=== PATIENT | male | born 1980 | race Caucasian/White ===

== ENCOUNTER 2023-08-21 16:21 | Outpatient (CLI) | payer OTHER, SELFPAY | END 2023-08-21 16:22 | disposition home or self-care (01) | PROVIDERS: PCP Emergency Medicine; Visit Provider Emergency Medicine | DX: F41.8 Other specified anxiety disorders (principal) | CPT/HCPCS: 84443 ==

== ENCOUNTER 2023-09-20 08:58 | Outpatient (CLI) | payer OTHER, SELFPAY | END 2023-09-20 08:59 | disposition home or self-care (01) | LOC: NFLDREF 09-25 10:29 | PROVIDERS: PCP Emergency Medicine; Referring Provider Emergency Medicine; Visit Provider Emergency Medicine | DX: Z13.1 Encounter for screening for diabetes mellitus (principal); Z13.220 Encounter for screening for lipoid disorders | CPT/HCPCS: 80053; 80061 ==

== ENCOUNTER 2023-12-31 08:01 | Outpatient (CLI) | payer OTHER, SELFPAY | END 2023-12-31 08:02 | disposition home or self-care (01) | LOC: NFLDREF 01-09 12:31 | PROVIDERS: PCP Emergency Medicine; Referring Provider Emergency Medicine; Visit Provider Emergency Medicine | DX: E78.5 Hyperlipidemia, unspecified (principal) | CPT/HCPCS: 80061 ==

== ENCOUNTER 2024-04-15 19:45 | Outpatient (CLI) | payer OTHER, SELFPAY ==
--- NOTE | 2024-05-12 08:10 | W.PM.SLEEP ---
Sleep Study Details Details Interpreting Provider: John Date of Sleep Study: 04/15/24 Sleep Study Details: STUDY TYPE:? Home unattended ? BMI:? 40.8 ORDERING PROVIDER:Queenie De Santiago INDICATION:? Concern about sleep apnea ? SLEEP SUMMARY:? 601 minutes monitored RESPIRATORY SUMMARY:? AHI 57.8, supine 74.8, left lateral 25.1, right lateral 27.1 Low oxygen 82 9.6% of study oxygen less than 90% Snoring 79.8% PERIODIC LIMB MOVEMENTS OF SLEEP:? Not recorded CARDIAC:? Range 52-89, mean 63.8 beats per minute IMPRESSION:? Severe obstructive sleep apnea RECOMMENDATION: Treatment options include weight loss and CPAP.
== END 2024-04-15 19:46 | disposition home or self-care (01) ==
LOC: SLEEP 19:49
PROVIDERS: PCP Emergency Medicine; Visit Provider Emergency Medicine
DX: G47.33 Obstructive sleep apnea (adult) (pediatric) (principal)
CPT/HCPCS: 95806

== ENCOUNTER 2024-06-09 09:04 | Outpatient (CLI) | payer OTHER, SELFPAY | END 2024-06-09 09:05 | disposition home or self-care (01) | LOC: NFLDREF 06-13 06:59 | PROVIDERS: PCP Emergency Medicine; Referring Provider Emergency Medicine; Visit Provider Emergency Medicine | DX: E78.2 Mixed hyperlipidemia (principal) | CPT/HCPCS: 80061 ==

== ENCOUNTER 2024-06-11 14:19 | Outpatient (CLI) | payer OTHER, SELFPAY | END 2024-06-11 14:20 | disposition home or self-care (01) | PROVIDERS: PCP Emergency Medicine; Visit Provider Emergency Medicine | DX: Z13.228 Encounter for screening for other metabolic disorders (principal); Z13.29 Encounter for screening for other suspected endocrine disorder | CPT/HCPCS: 80053; 84443 ==

== ENCOUNTER 2024-07-12 17:07 | Emergency (ER) | payer OTHER, SELFPAY ==
[2024-07-12] VITALS (8 sets, daily range): BP systolic 118–127; BP diastolic 72–79; PULSE 89–100; RESP 18–20; TEMP 36.2–37.3; O2SAT 93–97; BMI 39.1
--- NOTE | 2024-07-12 17:14 | ED_ITS ---
HPI - General Adult General Date Seen: 07/12/24 Chief complaint: Fever Stated complaint: 102 fever, bloody stools, pain Time Seen by Provider: 07/12/24 17:14 History of Present Illness HPI narrative: 44-year-old male with a past medical history of elevated BMI, depression (on fluoxetine), anxiety, osteoarthritis, sleep apnea, dyslipidemia (on rosuvastatin), presenting to the ER today for bloody stools associated with fever and chills and body aches. He is generally healthy. No diabetes or immunosuppression. He 1st noted symptoms Rickey evening. He went to the bathroom and had a fairly liquidy and 5 watery stool associated with bright red blood in the toilet water. Since then he has not really had a lot of episodes of diarrhea. He has only had 1 other stool and was small black no gets up black feces. Since then he has also developed fever and chills with body aches, sweatiness, fatigue and myalgias. He has also had fairly significant abdominal pain predominantly in his right lower quadrant. The pain is worse with any movement. He is not really nauseous but has had a poor appetite. He has been trying to drink plenty of water because he is running a fever. Despite that he has noted that his urine has become more yellow and foul smelling. He is not having any dysuria. He also has a mild stuffy nose, cough. He has had a bad headache. He has no known exposure to anyone with recent illnesses. No recent travel or suspicious food intake. No recent antibiotic. He is allergic to amoxicillin and penicillins. Related Data Previous Rx's ?Medication ?Instructions ?Recorded fluoxetine 20 mg capsule 40 mg (2 x 20 mg) PO QDAY #180 caps 03/17/24 rosuvastatin 20 mg tablet 20 mg PO QDAY #90 tabs 06/11/24 benzonatate 100 mg capsule 100 mg PO TID PRN cough #14 caps 07/12/24 doxycycline hyclate 100 mg capsule 100 mg PO BID #14 caps 07/12/24 Allergies Allergy/AdvReac Type Severity Reaction Status Date / Time clavulanic acid (From Allergy Intermediate Rash Verified 06/11/24 13:45 Augmentin) hydrocodone Allergy Intermediate Nausea Verified 06/11/24 13:45 amoxicillin Allergy Unknown Rash Verified 06/11/24 13:45 Penicillins Allergy Unknown Hives Verified 06/11/24 13:45 bupropion AdvReac Severe Verified 06/11/24 13:45 [facility] Medical History (Updated 07/12/24 @ 19:45 by Giancarlo Birmingham MD) Weight loss counseling, encounter for ?Z71.3 - Dietary counseling and surveillance (ICD-10) GAIL (obstructive sleep apnea) ?G47.33 - Obstructive sleep apnea (adult) (pediatric) (ICD-10) Screening for hyperlipidemia ?Z13.220 - Encounter for screening for lipoid disorders (ICD-10) Screening for diabetes mellitus ?Z13.1 - Encounter for screening for diabetes mellitus (ICD-10) BMI 38.0-38.9,adult ?Z68.38 - Body mass index [BMI] 38.0-38.9, adult (ICD-10) Cough ?R05.9 - Cough, unspecified (ICD-10) Snoring ?R06.83 - Snoring (ICD-10) Fatigue ?R53.83 - Other fatigue (ICD-10) Depression with anxiety ?F41.8 - Other specified anxiety disorders (ICD-10) Tenosynovitis of finger ?M65.9 - Synovitis and tenosynovitis, unspecified (ICD-10) Bilateral carpal tunnel syndrome (07/25/15) ?G56.03 - Carpal tunnel syndrome, bilateral upper limbs (ICD-10) Family History (Updated 04/10/23 @ 10:07 by Catherine Valera ~ PSR) Father Diabetes Mother Anxiety Depression ADHD (attention deficit hyperactivity disorder) Paternal Grandmother Lung cancer Maternal Grandmother Leukemia Social History (Updated 08/21/23 @ 16:10 by Cady Ames MD) Narrative: Cigar smoker Alcohol ingestion, 1-4 drinks/week Does not use illicit drugs [employer] Smoking Status: Former smoker Do you use any of these nicotine containing products: None Second hand tobacco smoke exposure: No Non-prescribed substance use: denies use Little interest or pleasure in doing things: several days Feeling down, depressed, or hopeless: several days Exam Narrative: Exam Narrative: Constitutional: Appears well-developed and well-nourished. Alert. Conversant but uncomfortable appearing. Non toxic. HENT: Head: Atraumatic. Nose: Nose normal. Mouth/Throat: Oral mucosa is clear but dry. Not desiccated or cracked. No trismus. Eyes: Conjunctivae normal. EOM normal. Pupils equal, round, and reactive to light. No scleral icterus. Neck: Normal range of motion. Neck supple. No tracheal deviation present. No JVD Cardiovascular: Normal rate, regular rhythm. No gallop. No friction rub. No murmur heard. Symmetric radial artery pulses Pulmonary/Chest: Effort normal. No stridor. No respiratory distress. No wheezes. No rales. No rhonchi . No tenderness. Abdominal: Soft. Bowel sounds normal. No distension. No mass. Marked right lower quadrant tenderness. Right lower quadrant pain is triggered by palpation in the epigastrium and left side. Positive rebound. Negative guarding. No CVA tenderness. No right upper quadrant tenderness. Positive psoas sign Musculoskeletal: RUE: Normal range of motion. No tenderness. No deformity LUE: Normal range of motion. No tenderness. No deformity RLE: Normal range of motion. No edema. No tenderness. No deformity LLE: Normal range of motion. No edema. No tenderness. No deformity Neurological: Alert and oriented to person, place, and time. Normal strength. CN II-VII intact. No sensory deficit. GCS eye subscore is 4. GCS verbal subscore is 5. GCS motor subscore is 6. Normal coordination Skin: Skin is warm and dry. No rash noted. No pallor. Normal capillary refill. Psychiatric: Normal mood. Normal affect. Const: Vital Signs, click to edit/add: Vital Signs - 24 hr 07/12/24 17:09 07/12/24 18:00 07/12/24 18:02 Temperature 99.1 F Pulse Rate [Pulse Oximeter] 100 97 Respiratory Rate 20 20 Blood Pressure [Ri ght Upper Arm] 123/79 121/73 Pulse Oximetry 94 97 95 Oxygen Delivery Me thod Room Air Room Air Room Air 07/12/24 18:03 07/12/24 18:30 07/12/24 18:32 Temperature Pulse Rate [Pulse Oximeter] 90 Respiratory Rate 18 Blood Pressure [Ri t Upper Arm] 127/72 Pulse Oximetry 95 93 93 Oxygen Delivery Me thod Room Air Room Air Room Air 07/12/24 19:00 07/12/24 19:48 Temperature 97.2 F L Pulse Rate [Pulse Oximeter] 89 Respiratory Rate 18 Blood Pressure [Ri t Upper Arm] 118/76 Pulse Oximetry 97 Oxygen Delivery Me thod Room Air Course Course ED Course: Recheck-repeat abdominal exam still reveals some right lower quadrant tenderness but no ongoing Rovsing sign. Psoas sign is absent. Reevaluation(s) Reevaluation #1: Recheck-CT scan shows negative for appendicitis or other acute intra-abdominal pathology. It does show evidence for a right lower lobe pneumonia. Discussed results with the patient in detail. Reevaluation #2: Recheck-tolerating p.o.. Took doxycycline to treat pneumonia. Chest x-ray confirms a right lower lobe infiltrate but no other chest abnormality. Discussed results with the patient as well as his and [id number] in detail. Vital Signs Vital signs: Initial Vital Signs Temperature 99.1 F 07/12/24 17:09 Temperature Source Temporal Artery Scan 07/12/24 17:09 Pulse Rate 100 07/12/24 17:09 Respiratory Rate 20 07/12/24 17:09 Blood Pressure 123/79 07/12/24 17:09 Blood Pressure Mean 93 07/12/24 17:09 Pulse Oximetry 94 07/12/24 17:09 Oxygen Delivery Method Room Air 07/12/24 17:09 Vital Signs Temperature 99.1 F 07/12/24 17:09 Pulse Rate 100 07/12/24 17:09 Respiratory Rate 20 07/12/24 17:09 Blood Pressure 123/79 07/12/24 17:09 Pulse Oximetry 94 07/12/24 17:09 Oxygen Delivery Method Room Air 07/12/24 17:09 Temperature 97.2 F L 07/12/24 19:00 Pulse Rate 89 07/12/24 19:48 Respiratory Rate 18 07/12/24 19:48 Blood Pressure 118/76 07/12/24 19:48 Pulse Oximetry 97 07/12/24 19:48 Oxygen Delivery Method Room Air 07/12/24 19:48 Medications Administered Medications: Discontinued Medications Generic Name Dose Route Start Last Admin Trade Name Freq PRN Reason Stop Dose Admin Acetaminophen 1,000 mg 07/12/24 17:28 07/12/24 17:59 Acetaminophen 500 Mg Tablet PO 07/12/24 17:29 1,000 mg ONCE ONE Administration Doxycycline Hyclate 100 mg 07/12/24 19:40 07/12/24 19:47 Doxycycline Hyclate 100 Mg PO 07/12/24 19:41 100 mg ONCE ONE Administration Hydromorphone HCl 0.5 mg 07/12/24 17:28 07/12/24 18:00 Hydromorphone 0.5 Mg/0.5 Ml Inj IVP 0.5 mg Q1H PRN Administration Pain Sodium Chloride 500 mls @ 500 mls/hr 07/12/24 17:28 07/12/24 18:00 0.9 % Sodium Chloride 500 Ml IV 07/12/24 18:27 500 mls/hr .Q1H ONE Administration Ondansetron HCl 4 mg 07/12/24 17:28 07/12/24 17:59 Ondansetron 2 Mg/Ml Inj IVP 07/12/24 17:29 4 mg ONCE ONE Administration Medical Decision Making MDM Narrative Medical decision making narrative: Child presents for evaluation of fever associated with multiple other symptoms including cough, headache, body aches, chills, sweats, abdominal pain, and 1 bloody stool that happened 2 nights ago. Differential is broad. Primary concern is for abdominal source of fever with his more right lower quadrant tenderness. CT scan is fortunately negative for appendicitis. Also no evidence for colitis, diverticulitis, perforation, abscess. He did have a bloody stool 2 nights ago which raises concern for possible infectious enteritis. However he has not had any ongoing diarrhea since then so would not order stool culture at this time. Urinalysis is obtained to look for possible UTI or pyelonephritis. It is negative for infection but does show trace hematuria. Discussed in detail with the patient and he will follow-up with his primary care provider for re- evaluation. He does have a cough and headache. COVID influenza swab is negative. Abdominal CT does show evidence for right lower lobe pneumonia. This is confirmed by chest x-ray. Will treat with doxycycline. At this point he is hemodynamically stable, oxygenating well, has no shortness of breath. He has no significant medical comorbidity or immunosuppression requiring hospitalization. Will put him on doxycycline 100 mg b.i.d. for 7 days. No classic rash to suggest viral syndrome. No evidence for OM on exam. No pharyngitis. Differential for fever included cellulitis, septic arthritis, osteomyelitis but these are not seen on exam. The patient is smiling, alert, sitting up, and non-toxic, so I do not think sepsis or meningitis is present. Plan of care includes supportive care with antipyretics, fluids at home. Instructions to return for recheck in 2-3 days if not improved, or immediately if worsening cough, shortness of breath, weakness, fever, decreasing oral intake, lethargy, irritability, or any other concerns. Lab Data Labs: Lab Results 07/12/24 07/12/24 Range/Units 17:30 17:45 WBC 11.76 H (4.50-11.00) K/uL RBC 5.23 (4.30-5.90) m/uL Hgb 15.4 (13.5-17.5) gm/dL Hct 46.3 (37.0-53.0) % MCV 89 (80-100) fL MCH 29 (26-34) pg MCHC 33 (32-36) gm/dL RDW Coeff of [place] 13.1 (11.5-15.5) % Plt Count 261 (140-440) K/uL Neut % (Auto) 81.4 H (42.0-72.0) % Lymph % (Auto) 8.4 L (20-44) % [place] % (Auto) 9.4 (0.0-11.0) % Eos % (Auto) 0.4 (0.0-7.0) % Baso % (Auto) 0.1 (0.0-3.0) % Neut # (Auto) 9.60 H (1.7-7.0) K/uL Lymph # (Auto) 1.00 (0.90-2.90) K/uL [place] # (Auto) 1.10 H (0.00-0.90) K/UL Eos # (Auto) 0.00 (0.00-0.50) K/uL Baso # (Auto) 0.00 (0.00-0.30) K/uL Abs Immat Gran (auto) 0.00 (0.00-0.30) K/uL Imm/Tot Granulo (auto) 0.3 % Sodium 133 L (135-149) mmol/L Potassium 3.7 (3.6-5.1) mmol/L Chloride 100 (96-114) mmol/L Carbon Dioxide 23 (20-32) mmol/L Anion Gap 10 (7-15) mEq/L BUN 13 (5-24) mg/dL Creatinine 1.0 (0.5-1.5) mg/dL Estimated Creat Clear 101.45 Estimated GFR 96 ml/min Glucose 114 (60-115) mg/dL Lactate 1.0 (0.5-1.9) mmol/L Calcium 9.2 (8.4-10.6) mg/dL Total Bilirubin 0.7 (0.1-1.5) mg/dL AST 24 (12-35) U/L ALT 27 (4-50) U/L Alkaline Phosphatase 97 (40-150) U/L Total Protein 7.7 (6.0-8.3) g/dL Albumin 4.5 (3.3-5.0) g/dL Lipase 54 (23-300) U/L Urine Color Yellow (Yellow) Urine Appearance Clear (Clear) Urine pH 6.0 (5.0-8.5) Ur Specific [place] 1.025 (1.000-1.030) Urine Protein 1+ A (Negative) Urine Glucose (UA) Negative (Negative) Urine Ketones 1+ A (Negative) Urine Blood 3+ A (Negative) Urine Nitrite Negative (Negative) Urine Bilirubin Negative (Negative) Urine Urobilinogen 0.2 (0.2-1.0) Ur Leukocyte Esterase Negative (Negative) Urine RBC 5-10 A (0-2) Urine WBC 0-2 (0-5) Ur Squamous Epith Cells Few (None-Few) Urine Bacteria None (None) SARS-CoV-2 (PCR) Negative SARS-CoV-2 (Negative) Influenza Type A (PCR) Negative PCR FLU A (Negative) Influenza Type B (PCR) Negative PCR FLU B (Negative) Imaging Data CT scan - abdomen: Attestation: I have reviewed the pertinent imaging results. Radiologist's impression: FINDINGS: Lower chest: Right lower lobe patchy consolidation. Liver: Unremarkable. Normal in size and attenuation. No suspicious masses. Gallbladder and bile ducts: Unremarkable. No stones or inflammation. No biliary dilatation. Pancreas: Unremarkable. No mass or inflammation. Spleen: Unremarkable. Normal in size. No masses. Adrenal glands: Unremarkable. No nodules. Kidneys: Unremarkable. No suspicious masses, stones, or hydronephrosis. GI tract: Unremarkable. Normal in caliber. No sign of mass or inflammation. Normal appendix. Vasculature: Abdominal aorta is normal in caliber. Mesenteric arteries are patent. Lymph nodes: No lymphadenopathy. Peritoneum/Abdominal Wall: Unremarkable. No sign of mass or infiltration. No free air or significant free fluid. Pelvis: Streak artifact in the pelvis from bilateral total hip arthroplasties mildly limits evaluation.. Bones: Bilateral total hip arthroplasty changes. No acute fractures or dislocations identified. IMPRESSION: 1. right lower lobe patchy consolidation. 2. No acute intra-abdominal process identified. Chest x-ray: Attestation: I have reviewed the pertinent imaging results. My impression: RLL infiltrate Radiologist's impression: IMPRESSION: 1. Focal airspace infiltrates are present in the medial right lung base, likely due to pneumonia. Discharge Plan Discharge Clinical Impression: Pneumonia, Hematuria Instructions: Community Acquired Pneumonia (DC) Additional Instructions: As we discussed, I suspect that a right lower lobe pneumonia is causing your fever, headache, body aches, cough. At this point your labs and vital signs and oxygen level are reassuring. It is safe to treat this pneumonia with antibiotics at home. However if you have worsening symptoms, especially worsening trouble breathing, weakness, or dehydration, please come back to the emergency room right away. Typically it will take 24-72 hours for pneumonia to start to get better after you start on antibiotics. Your workup tonight does show a tiny amount of blood in your urine (only visible under the microscope). Please follow-up with your regular doctor within the next 2-3 weeks for recheck and to consider a urology evaluation. Prescriptions: New doxycycline hyclate 100 mg capsule 100 mg PO BID Qty: 14 0RF benzonatate 100 mg capsule 100 mg PO TID PRN (Reason: cough) Qty: 14 0RF No Action fluoxetine 20 mg capsule 40 mg PO QDAY Qty: 180 3RF rosuvastatin 20 mg tablet 20 mg PO QDAY Qty: 90 3RF Follow Up/Referrals: Cady Ames MD [Primary Care Provider] - Stand Alone Forms: [employer] Info Instructions
--- NOTE | 2024-07-12 17:29 | CRLHL7_ITS ---
For Patients: As a result of the Century Cures Act, medical imaging exams and procedure reports are released immediately into your electronic medical record. You may view this report before your referring provider. If you have questions, please contact your health care provider. INDICATION: RLQ PAIN, REBOUND, FEVER, ONE BLOODY STOOL. TECHNIQUE: CT abdomen and pelvis acquired with 137 cc Isovue 370 IV contrast. COMPARISON: None. FINDINGS: Lower chest: Right lower lobe patchy consolidation. Liver: Unremarkable. Normal in size and attenuation. No suspicious masses. Gallbladder and bile ducts: Unremarkable. No stones or inflammation. No biliary dilatation. Pancreas: Unremarkable. No mass or inflammation. Spleen: Unremarkable. Normal in size. No masses. Adrenal glands: Unremarkable. No nodules. Kidneys: Unremarkable. No suspicious masses, stones, or hydronephrosis. GI tract: Unremarkable. Normal in caliber. No sign of mass or inflammation. Normal appendix. Vasculature: Abdominal aorta is normal in caliber. Mesenteric arteries are patent. Lymph nodes: No lymphadenopathy. Peritoneum/Abdominal Wall: Unremarkable. No sign of mass or infiltration. No free air or significant free fluid. Pelvis: Streak artifact in the pelvis from bilateral total hip arthroplasties mildly limits evaluation.. Bones: Bilateral total hip arthroplasty changes. No acute fractures or dislocations identified. IMPRESSION: 1. right lower lobe patchy consolidation. 2. No acute intra-abdominal process identified. Please note that all CT scans at this facility use dose modulation, iterative reconstruction, and/or weight-based dosing when appropriate to reduce radiation dose to as low as reasonably achievable. Dictated by Hipolito Hercules MD @ 07/12/2024 7:05:54 PM (Electronically Signed)
[2024-07-12 17:42] LABS: Appearance Urine Clear (Clear); Bilirubin Urine Negative (Negative); Blood Urine 3+ (Negative); Color Urine Yellow (Yellow); Glucose Urine Negative (Negative); Ketones Urine 1+ (Negative); Leukocyte Esterase Urine Negative (Negative); Nitrite Urine Negative (Negative); Protein Urine 1+ (Negative); Specific Gravity Urine 1.025 (1.000-1.030); Urobilinogen Urine 0.2 (0.2-1.0)
[2024-07-12 17:50] LABS: Squamous Epithelial Cell Urine Few (None-Few); WBC Urine 0-2 (0-5)
[2024-07-12 17:55] LABS: Basophils Percent Auto 0.1 % (0.0-3.0); Eosinophils Percent Auto 0.4 % (0.0-7.0); Hematocrit 46.3 % (37.0-53.0); Hemoglobin* 15.4 gm/dL (13.5-17.5); Immature Granulocytes Pct Auto 0.3 %; Lymphocytes Percent Auto 8.4 % (20-44); Mean Corpuscular HGB Conc 33 gm/dL (32-36); Mean Corpuscular Hemoglobin 29 pg (26-34); Mean Corpuscular Volume 89 fL (80-100); Monocytes Percent Auto 9.4 % (0.0-11.0); Neutrophils Percent Auto 81.4 % (42.0-72.0); Platelet Count* 261 K/uL (140-440); RDW Coefficient of Variation % 13.1 % (11.5-15.5); Red Blood Count 5.23 m/uL (4.30-5.90); White Blood Count* 11.76 K/uL (4.50-11.00)
[2024-07-12 17:59] LABS: Slide Review Reflex No
[2024-07-12] MEDS: ONDANSETRON 2 MG/ML inj 4 MG IVP (17:59)
[2024-07-12] MEDS: ACETAMINOPHEN 500 MG TABLET 1000 MG PO (17:59)
[2024-07-12] MEDS: HYDROmorphone 0.5 mg/0.5 ml inj IVP (18:00)
[2024-07-12] MEDS: 0.9 % SODIUM CHLORIDE 500 ML 500 ML IV (18:00)
[2024-07-12 18:12] LABS: Albumin* 4.5 g/dL (3.3-5.0); Chloride* 100 mmol/L (96-114); Potassium* 3.7 mmol/L (3.6-5.1); Sodium* 133 mmol/L (135-149)
[2024-07-12 18:14] LABS: Est. Creatinine Clearance* 101.45; Estimated Glomerular Filt Rate 96 ml/min
[2024-07-12 18:15] LABS: Alanine Aminotransferase* 27 U/L (4-50); Alkaline Phosphatase* 97 U/L (40-150); Anion Gap 10 mEq/L (7-15); Aspartate Amino Transferase* 24 U/L (12-35); Bilirubin Total* 0.7 mg/dL (0.1-1.5); Blood Urea Nitrogen* 13 mg/dL (5-24); Calcium* 9.2 mg/dL (8.4-10.6); Carbon Dioxide* 23 mmol/L (20-32); Glucose* 114 mg/dL (60-115); Lipase* 54 U/L (23-300); Total Protein* 7.7 g/dL (6.0-8.3)
[2024-07-12 18:32] LABS: PCR FLU A Negative PCR FLU A (Negative); PCR FLU B Negative PCR FLU B (Negative); SARS PCR* Negative SARS-CoV-2 (Negative)
--- NOTE | 2024-07-12 19:11 | CRLHL7_ITS ---
For Patients: As a result of the Cures Act, medical imaging exams and procedure reports are released immediately into your electronic medical record. You may view this report before your referring provider. If you have questions, please contact your health care provider. INDICATION: Cough, fever TECHNIQUE: Chest radiograph 2 views COMPARISON: None FINDINGS: The sensitivity and specificity of the exam are moderately limited by the patient`s body habitus. Mediastinum: The mediastinum is normal in appearance. The heart silhouette is normal in size and morphology. Lung: Focal airspace infiltrates are present in the medial right lung base, likely due to pneumonia. No sign of pleural effusion seen. No pneumothorax is identified. Bone and Soft tissue: Unremarkable for age. IMPRESSION: 1. Focal airspace infiltrates are present in the medial right lung base, likely due to pneumonia. Dictated by Leander Oliver MD @ 07/12/2024 7:31:40 PM Dictated by: Leander Oliver MD @ 07/12/2024 19:31:44 (Electronically Signed)
[2024-07-12] MEDS: DOXYCYCLINE HYCLATE 100 MG PO (19:47)
== END 2024-07-12 19:57 | disposition home or self-care (01) ==
PROVIDERS: Emergency Provider Emergency Medicine; PCP Emergency Medicine
DX: J18.9 Pneumonia, unspecified organism (principal); R31.9 Hematuria, unspecified
CPT/HCPCS: 36415; 71046; 74177; 80053; 81001; 83605; 83690; 85025; 87631; 96374; 96375; 99284; 99285; A9270; J1171; J2405; J7030; Q9967

== ENCOUNTER 2024-08-27 09:43 | Outpatient (CLI) | payer OTHER, SELFPAY | END 2024-08-27 09:44 | disposition home or self-care (01) | LOC: NFLDREF 15:03 | PROVIDERS: PCP Emergency Medicine; Referring Provider Emergency Medicine; Visit Provider Emergency Medicine | DX: R31.29 Other microscopic hematuria (principal) | CPT/HCPCS: 87086 ==

== ENCOUNTER 2024-09-17 09:38 | Outpatient (CLI) | payer OTHER, SELFPAY ==
--- NOTE | 2024-09-17 10:55 | W.ANESCHARGE ---
Anesthesia Charges Start Date/Time Anesthesia Start Date: 09/17/24 Anesthesia Start Time: 10:24 Stop Date/Time Anesthesia Stop Date: 09/17/24 Anesthesia Stop Time: 10:52
== END 2024-09-17 09:39 | disposition home or self-care (01) ==
LOC: OP CLINIC 09:38
PROVIDERS: PCP Emergency Medicine; Visit Provider Surgery
DX: Z12.11 Encounter for screening for malignant neoplasm of colon (principal); K62.5 Hemorrhage of anus and rectum; D12.8 Benign neoplasm of rectum; Z83.719 Family history of colon polyps, unspecified
CPT/HCPCS: 00811; 45385; 88305; J2704

== ENCOUNTER 2024-10-01 08:38 | Outpatient (CLI) | payer OTHER, SELFPAY | END 2024-10-01 08:39 | disposition home or self-care (01) | LOC: NFLDREF 10-14 04:13 | PROVIDERS: PCP Emergency Medicine; Visit Provider Emergency Medicine | DX: R31.29 Other microscopic hematuria (principal) | CPT/HCPCS: 87086 ==

== ENCOUNTER 2025-01-14 07:58 | Outpatient (CLI) | payer OTHER, SELFPAY ==
--- NOTE | 2025-01-14 08:15 | CRLHL7_ITS ---
For Patients: As a result of the Century Cures Act, medical imaging exams and procedure reports are released immediately into your electronic medical record. You may view this report before your referring provider. If you have questions, please contact your health care provider. Indication: Lumbar pain. Radiculopathy. Technique: Multiplanar, multisequence MRI of the lumbar spine was performed without intravenous contrast. Comparison: None relevant available. Findings: There are 5 lumbar type vertebral segments identified. The vertebral body heights are maintained without evidence of fracture. There is no discrete T1 hypointense marrow infiltrating process. The conus medullaris terminates at T12-L1, normal. Cauda equina appears unremarkable. T12-L1: No spinal canal or neural foraminal stenosis. L1-2: No spinal canal or neural foraminal stenosis. L2-3: Disc degeneration with inferior L2 endplate fatty marrow change (Modic type 2). No spinal canal narrowing. Mild neural foraminal narrowing. L3-4: Disc degeneration with minimal spinal canal narrowing. Mild right neural foraminal narrowing. Mild facet arthropathy. L4-5: Disc degeneration. Mild spinal canal narrowing. Mild neural foraminal narrowing. Mild facet arthropathy. L5-S1: Disc degeneration. No spinal canal or neural foraminal narrowing. Mild facet arthropathy. The visualized sacroiliac joints appear patent. Left peripelvic renal cysts. Impression: 1. Mild multilevel lumbar spondylosis. 2. No high-grade spinal canal or neural foraminal stenosis. Dictated by Geoff Garcia MD @ 01/14/2025 3:49:16 PM (Electronically Signed)
== END 2025-01-14 07:59 | disposition home or self-care (01) ==
LOC: MRI 07:59
PROVIDERS: PCP Emergency Medicine; Visit Provider Orthopaedic Surgery Sports Medicine
DX: M54.16 Radiculopathy, lumbar region (principal); M47.896 Other spondylosis, lumbar region; M51.362 Other intervertebral disc degeneration, lumbar region with discogenic back pain and lower extremity pain
CPT/HCPCS: 72148

== ENCOUNTER 2025-06-17 08:45 | Outpatient (CLI) | payer OTHER, SELFPAY | END 2025-06-17 08:46 | disposition home or self-care (01) | LOC: NFLDREF 06-22 02:13 | PROVIDERS: Visit Provider Family Medicine | DX: E78.2 Mixed hyperlipidemia (principal); E66.09 Other obesity due to excess calories; R73.03 Prediabetes; F41.9 Anxiety disorder, unspecified; F32.A Depression, unspecified; Z13.1 Encounter for screening for diabetes mellitus; Z13.6 Encounter for screening for cardiovascular disorders | CPT/HCPCS: 80053; 80061 ==